=== PATIENT | female | born 1960 | race Caucasian/White ===

== ENCOUNTER 2019-03-02 12:22 | Day surgery (SDC) | payer BC ==
[2019-03-02] VITALS (15 sets, daily range): BP systolic 113–137; BP diastolic 66–88; PULSE 54–74; RESP 13–35; Ht 162.6 cm; Wt 79.8 kg
[~2019-03-02] VITALS: Ht 162.6 cm; Wt 79.8 kg
[~2019-03-02 12:22] MED LIST: ESCI20TA PO
[2019-03-02] MEDS ORDERED: IOHEXOL 300MG/ML 30 ML BTL ONE (13:57)
[2019-03-02] MEDS ORDERED: PROPOFOL 20 ML ONE (14:17)
[2019-03-02] MEDS ORDERED: MIDAZOLAM 1 MG/ML 2 ML INJ ONE (14:17)
[2019-03-02] MEDS ORDERED: SUCCINYLCHOLINE CHLORIDE 100 MG/5 ML SYG IV ONE (14:17)
[2019-03-02] MEDS ORDERED: LIDOCAINE 2% (SDV) 5 ML INJ ONE (14:17)
[2019-03-02] MEDS ORDERED: FENTAnyl 50 MCG/ML VIAL IV PRN (14:30)
[2019-03-02] MEDS ORDERED: MEPERIDINE 25 MG INJ IV PRN (14:30)
[2019-03-02] MEDS ORDERED: PROCHLORPERAZINE 10 MG INJ IV PRN (14:30)
[2019-03-02] MEDS ORDERED: HYDROmorphONE 1 MG/5 ML IV SYRINGE IV PRN ×2 (14:30)
[2019-03-02] MEDS ORDERED: DIPHENHYDRAMINE 50 MG INJ IV PRN (14:30)
[2019-03-02] MEDS: INDOMETHACIN 50 MG SUPP PR ONE ×2 (14:30→14:43)
[2019-03-02] MEDS ORDERED: ONDANSETRON 4 MG INJ IV PRN (14:30)
[2019-03-02] MEDS ORDERED: OXYCODONE/ACETAMINOPHEN (5/325) TAB PO PRN (14:30)
[2019-03-02] MEDS ORDERED: ONDANSETRON 4 MG INJ ONE ×2 (14:41→15:28)
[2019-03-02] MEDS ORDERED: EPHEDrine 25 MG/5 ML SYG ONE (14:41)
[2019-03-02] MEDS ORDERED: DEXAMETHASONE 4 MG/ML 5 ML INJ ONE (14:41)
[2019-03-02] MEDS ORDERED: FAMOTIDINE 20 MG INJ ONE (14:41)
[2019-03-02] MEDS ORDERED: GLYCOPYRROLATE 0.4 MG INJ ONE (15:04)
[2019-03-02] MEDS ORDERED: NEOSTIGMINE 3 MG/3 ML SYRINGE ONE (15:04)
[2019-03-02] MEDS ORDERED: CIPROFLOXACIN 400MG/D5W 200 ML ONE (15:21)
[2019-03-02] MEDS ORDERED: CIPROFLOXACIN 400MG/D5W 200 ML IVPB ONE (15:30)
[2019-03-02] MEDS ORDERED: MEPERIDINE 25 MG INJ ONE (15:31)
[2019-03-02] MEDS ORDERED: FENTAnyl 50 MCG/ML VIAL ONE (15:43)
[2019-03-02] MEDS ORDERED: HYDROmorphONE 1 MG/5 ML IV SYRINGE IV ONE (15:53)
[2019-03-02] MEDS: HYDROmorphONE 1 MG/5 ML IV SYRINGE IV PRN ×2 (15:54→16:04)
[2019-03-02] MEDS ORDERED: PROCHLORPERAZINE 10 MG INJ ONE (16:08)
== END 2019-03-02 17:15 | disposition home or self-care (01) ==
LOC: GIL 12:22
PROVIDERS: ATTEND Internal Medicine Gastroenterology
DX: K80.37 Calculus of bile duct with acute and chronic cholangitis with obstruction (principal); K80.50 Calculus of bile duct without cholangitis or cholecystitis without obstruction; J45.909 Unspecified asthma, uncomplicated
CPT/HCPCS: 43264; 43275; 74330; 80053; 85025; 93005; J0744; J0780; J1100; J1170; J2175; J2250; J2405; J2710; J3010; Q9967; Z7512; Z7610